=== PATIENT | male | born 1990 | race Hispanic/Latino ===

== ENCOUNTER 2019-05-13 19:43 | Emergency (ER) | payer OTHER ==
[2019-05-13] MEDS ORDERED: IBUPROFEN 600 MG TABLET ONE (20:17)
== END 2019-05-13 20:41 | disposition home or self-care (01) ==
LOC: EDH 19:43
DX: S93.401A Sprain of unspecified ligament of right ankle, initial encounter (principal); F41.9 Anxiety disorder, unspecified; F31.9 Bipolar disorder, unspecified; W01.0XXA Fall on same level from slipping, tripping and stumbling without subsequent striking against object, initial encounter; Y93.01 Activity, walking, marching and hiking; Y92.89 Other specified places as the place of occurrence of the external cause; Y99.8 Other external cause status
CPT/HCPCS: 73610